=== PATIENT | female | born 1995 | race African-American/Black ===

== ENCOUNTER 2018-02-12 19:44 | Emergency (ER) | payer OTHER ==
[~2018-02-12] VITALS: Ht 165.1 cm; Wt 90.7 kg
== END 2018-02-12 21:05 | disposition home or self-care (01) ==
LOC: FSED 19:44

== ENCOUNTER 2018-10-31 01:09 | Emergency (ER) | payer BC ==
[~2018-10-31] VITALS: Ht 167.6 cm; Wt 99.8 kg
--- OUTSIDE RECORDS SUMMARY | 2018-10-31 01:13 | XMS REPORT | Encounter Summary ---
Author Organization Unknown Address [address] [place] [id number] Phone [phone] Reason for Visit Medical Complaint Instructions 1. Streptococcal sore throat amoxicillin 875 mg tablet rapid strep group A, throat 2. Viral sinusitis rapid flu (A+B) benzonatate 200 mg capsule prednisone 20 mg tablet 3. Body mass index 30+ - obesity A healthy lifestyle: care instructions Discussion Note Work note given to RTW 03/15/18 Plan of Care Patient Instructions Take antibiotic as prescribed. Handwashing. Increase fluid intake and plenty of rest. May take tynenol/motrin for pain. may use cloraseptic throat spray for sore throat. Gargles warm salt water, cepacol. Throw away old toothbrush after 3 days of antibiotic. Avoid sharing drinks/utensils. If no improvement in 3 days, or worsening of symptoms, see primary care physician or call clinic. Reminders Provider Appointments None recorded. Lab Rapid Strep Group a, Throat 03/13/2018 [facility] Rapid Flu (A+B) 03/13/2018 [facility] Referral None recorded. Procedures None recorded. Surgeries None recorded. Imaging None recorded. Medications Name Start Date amoxicillin 875 mg tablet Take 1 tablet every 12 hours by oral route as directed for 10 days. benzonatate 200 mg capsule Take 1 capsule 3 times a day by oral route as needed. prednisone 20 mg tablet Take 1 tablet twice a day by oral route after meals for 3 days. Medications Administered None recorded. Vitals Height Weight BMI Blood Pressure 5 ft 6 in 190 lbs 30.7 kg/m2 120/80 mm[Hg] Lab Results Date Name Specimen Result Interpretation Description Value Range Status Address Rapid Flu (A+B) Influenza a negative [facility]: [address] [place] [address] Influenza B negative [facility]: [address] [place] [address] Rapid Strep Group a, Throat Result positive [facility]: [address] [place] [address] Swab Location Left and Right tonsillar pillars [facility]: [address] [place] [address] Allergies Code Code System Name Reaction Severity Status Onset NKDA Problems No Known Problems Procedures Date Name Performed by Knee Arthroscopy/surgery Information not available Vaccine List None recorded. Social History Smoking Status Never Smoker Past Encounters 03/13/2018 Streptococcal Sore Throat; Viral Sinusitis; Body Mass Index 30+ - Obesity Macrina Mead, [employer]KER: [address] [place] [address], Ph. History of Present Illness Throat-Oral Complaint Reported By: Patient HPI: Location: throat. Quality: sore throat, congested, dry or hacking cough. Severity: severe. Duration: 2 days. Onset/Timing: sudden. Context: no sick contacts, no foreign travel, non-smoker. Modifying factors: OTC medication. Associated Symptoms: no headache, no body aches, no sputum production, no shortness of breath, no wheezing, no change in number of pillows needed to sleep at night, no sweats, no significant weight gain, no significant weight loss, no morning cough, no diarrhea, no rash, no nausea, fever, sore throat, vomiting Review of Systems Basic Reported By: Patient Constitutional: Constitutional: fever Eyes: Eyes: no eye complaints [id number]-[id number]-Throat: Ears: no ear complaints. Nose: nose/sinus problems. Mouth/Throat: no bleeding gums, no mouth complaints, no teeth problems, sore throat Cardiovascular: Cardiovascular: no chest pain, no shortness of breath, no known heart murmur Respiratory: Respiratory: no wheezing, no shortness of breath, cough Gastrointestinal: Gastrointestinal: no abdominal pain, vomiting Genitourinary: Genitourinary: no urinary complaints, no discharge Musculoskeletal: Musculoskeletal: no muscle aches, no muscle weakness, no arthralgias/joint pain, no back pain Skin: Skin: no abnormal / changing mole, no jaundice, no rashes Neurologic: Neurologic: no loss of consciousness, no weakness, no numbness, no seizures, no dizziness, no headaches Physical Exam Adult Basic, Adult Female Complete, 14-21 Yr Females Reported By: Patient Constitutional: General Appearance: healthy-appearing, well-nourished, well-developed. Level of Distress: acutely ill. Ambulation: ambulating normally Psychiatric: Mental Status: active and alert, normal affect, normal mood. Orientation: to time, to place, to person Eyes: Lids and Conjunctivae: non-injected, no discharge, no pallor. Pupils: PERRLA, equal size, round, reactive to light. Corneas: grossly intact. EOM: EOMI, normal cover/uncover test. Lens: clear. Sclerae: non-icteric. Vision: acuity grossly intact Tmw-Uttn-Yiamz-Throat: Ears: no lesions on external ear, no outer ear tenderness, EACs clear, TMs clear. Hearing: no hearing loss. Nose: no lesions on external nose, nares patent, no septal deviation, nasal passages clear, no nasal discharge, sinus tenderness; rhinitis. Lips, Teeth, and Gums: no mouth or lip ulcers, no bleeding gums, normal dentition. Oropharynx: moist mucous membranes, erythema, exudates, tonsils enlarged 3+ Neck: Neck: supple, trachea midline, no masses, FROM. Lymph Nodes: no supraclavicular LAD, anterior cervical LAD. Thyroid: no enlargement, non-tender, no nodules, no asymmetry Lungs: Respiratory effort: no dyspnea, no tachypnea, no use of accessory muscles, no intercostal retractions. Auscultation: breath sounds normal, clear to auscultation, no wheezing, no rales/crackles, no rhonchi, no retractions Cardiovascular: Heart Auscultation: RRR, no murmurs, no gallops, no rub, normal femoral pulse. Neck vessels: no carotid bruits. Apical impulse: not displaced. Rate and rhythm: regular
--- OUTSIDE RECORDS SUMMARY | 2018-10-31 01:13 | XMS REPORT | Continuity of Care Document ---
Author Author [facility] Interface Address Unknown Phone Unavailable Problems Problem Status Onset Date Classification Date Reported Comments Source Body mass index 30+ - obesity 03/13/2018 Diagnosis 03/13/2018 [facility] Streptococcal sore throat 03/13/2018 Diagnosis 03/13/2018 [facility] Viral sinusitis 03/13/2018 Diagnosis 03/13/2018 [facility] Medications Medication Details Route Status Patient Instructions Ordering Provider Order Date Source Amoxicillin 875 MG Oral Tablet amoxicillin 875 mg tablet Take 1 tablet every 12 hours by oral route as directed for 10 days. Active [facility] benzonatate 200 MG Oral Capsule benzonatate 200 mg capsule Take 1 capsule 3 times a day by oral route as needed. Active [facility] Prednisone 20 MG Oral Tablet prednisone 20 mg tablet Take 1 tablet twice a day by oral route after meals for 3 days. Active [facility] Allergies, Adverse Reactions, Alerts Substance Category Reaction Severity Reaction type Status Date Reported Comments Source Immunizations Immunization Date Given Site Status Last Updated Comments Source Results Order Name Results Value Reference Range Date Interpretation Comments Source Influenza A negative 03/13/2018 [facility] Influenza B negative 03/13/2018 [facility] RESULT positive 03/13/2018 [facility] SWAB LOCATION Left and Right tonsillar pillars 03/13/2018 [facility] Vital Signs Vital Sign Value Date Comments Source Diastolic (mm Hg) 80 03/13/2018 [facility] Height 66 03/13/2018 [facility] Systolic (mm Hg) 120 03/13/2018 [facility] Weight 190 03/13/2018 [facility] Encounters Location Location Details Encounter Type Encounter Number Reason For Visit Attending Provider ADM Date DC Date Status Source [place] - [facility] - [id number] Macrina Mead, [employer] SPECIALIST: [address] [place] [address], Ph. [id number] Macrina Mead 03/13/2018 [facility] Procedures Procedure Code Date Perfomer Comments Source Knee Arthroscopy/surgery [address] [facility]
[2018-10-31] MEDS ORDERED: ONDANSETRON HCL INJ 2MG/ML 2ML 2 MG/ML VIAL IV STA ×2 (01:36→02:53)
[2018-10-31] MEDS ORDERED: SODIUM CHLORIDE 0.9% 1000ML 1,000 ML, SODIUM CHLORIDE 0.9% 1000ML 1,000 ML IV STA ×2 (01:36)
--- NOTE | 2018-10-31 01:45 | NUR ---
PT CURRENTLY DENIES PAIN AND IS RESTING IN BED; STATES NAUSEA IS BETTER
[2018-10-31] MEDS ORDERED: SODIUM CHLORIDE 0.9% 1000ML 1,000 ML IV STA (01:51)
[2018-10-31] MEDS ORDERED: POTASSIUM CHLORIDE 20 MEQ TAB CR PO STA (02:56)
[2018-10-31 03:27] VITALS: BP 142/83
== END 2018-10-31 03:30 | disposition home or self-care (01) ==
LOC: FSED 01:09
DX: R11.2 Nausea with vomiting, unspecified (principal); R10.13 Epigastric pain; K52.9 Noninfective gastroenteritis and colitis, unspecified
CPT/HCPCS: 80053; 81003; 81025; 85025; 99283; J2405; J7030

== ENCOUNTER 2025-01-19 16:53 | Emergency (ER) | payer BC, OTHER ==
[~2025-01-19] VITALS: Ht 167.6 cm; Wt 73.0 kg
[~2025-01-19 16:53] MED LIST: PREDNISONE20 MG PO
[2025-01-19 17:00] VITALS: PULSE 70; RESP 20; TEMP 99; O2SAT 100
== END 2025-01-19 18:44 | disposition home or self-care (01) ==
LOC: FSED 17:01
DX: S63.91XA Sprain of unspecified part of right wrist and hand, initial encounter (principal); W18.39XA Other fall on same level, initial encounter; Y93.01 Activity, walking, marching and hiking; Y92.89 Other specified places as the place of occurrence of the external cause
CPT/HCPCS: 99284